=== PATIENT | female | born 1995 | race Caucasian/White ===

== ENCOUNTER 2019-03-24 13:39 | Emergency (ER) | payer MEDICAID, OTHER ==
[~2019-03-24] VITALS: Ht 160 cm; Wt 100.2 kg
[2019-03-24 13:54] VITALS: BP 127/80
[2019-03-24] MEDS ORDERED: PENI500T2 PO (14:19)
[2019-03-24] MEDS ORDERED: IBUP-1984 PO (14:19)
== END 2019-03-24 14:39 | disposition home or self-care (01) ==
LOC: ER 13:39
DX: K04.7 Periapical abscess without sinus (principal); Z79.899 Other long term (current) drug therapy
CPT/HCPCS: 99283

== ENCOUNTER 2019-06-07 06:46 | Emergency (ER) | payer OTHER ==
[~2019-06-07] VITALS: Ht 160 cm; Wt 98.0 kg
[2019-06-07 06:51] VITALS: BP 122/72
[2019-06-07] MEDS ORDERED: HYDR-3965 PO ×2 (07:19→07:25)
[2019-06-07] MEDS ORDERED: METH4TAB81 PO ×2 (07:19→07:25)
[2019-06-07] MEDS ORDERED: ONDA4TAB6 PO ×2 (07:19→07:25)
[2019-06-07] MEDS ORDERED: AMOX500C2 PO ×2 (07:19→07:25)
[2019-06-07] MEDS: ibuprofen tablet 400 MG TABLET PO ONE (07:32)
== END 2019-06-07 07:36 | disposition home or self-care (01) ==
LOC: ER 06:46
DX: K08.89 Other specified disorders of teeth and supporting structures (principal)
CPT/HCPCS: 99283

== ENCOUNTER 2020-01-12 08:29 | Emergency (ER) | payer MEDICAID ==
[~2020-01-12] VITALS: Ht 160 cm; Wt 93.0 kg
[~2020-01-12 08:29] MED LIST: METH4TAB81 PO; ONDA4TAB6 PO
[2020-01-12 08:46] VITALS: BP 114/79
[2020-01-12] MEDS ORDERED: PENI500T2 PO (09:17)
[2020-01-12] MEDS ORDERED: IBUP-1984 PO (09:17)
== END 2020-01-12 09:35 | disposition home or self-care (01) ==
LOC: ER 08:29
DX: K08.89 Other specified disorders of teeth and supporting structures (principal)
CPT/HCPCS: 99283

== ENCOUNTER 2024-11-01 10:52 | Emergency (ER) | payer OTHER, BC ==
[~2024-11-01] VITALS: Ht 160 cm; Wt 116.5 kg
[2024-11-01 11:20] VITALS: BP 124/76; PULSE 99; RESP 18; O2SAT 100
[2024-11-01] MEDS: ketorolac trometh 30MG/ML vial 30 MG/ML VIAL IM ONE (14:22)
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
[2024-11-01 15:18] VITALS: TEMP 97.8
== END 2024-11-01 15:19 | disposition home or self-care (01) ==
LOC: ER 10:53
DX: S09.90XA Unspecified injury of head, initial encounter (principal); S19.9XXA Unspecified injury of neck, initial encounter; X58.XXXA Exposure to other specified factors, initial encounter; Y93.89 Activity, other specified; Y92.89 Other specified places as the place of occurrence of the external cause; Y99.8 Other external cause status
CPT/HCPCS: 99282